=== PATIENT | female | born 1955 | race Caucasian/White ===

== ENCOUNTER 2023-03-25 15:12 | Inpatient (IN) | payer MEDICARE ==
[~2023-03-25] VITALS: Ht 160 cm; Wt 96.0 kg
[2023-04-22] MEDS ORDERED: Meclizine 25 MG TAB PO SCH (13:45)
[2023-04-22] MEDS ORDERED: NS 1,000 ML IV SCH (13:45)
[2023-04-23] VITALS (13 sets, daily range): BP systolic 107–158; BP diastolic 62–84; PULSE 74–81; TEMP 97.5–97.8
[2023-04-23] MEDS ORDERED: Acetaminophen 500 MG TAB PO SCH ×2 (06:09→13:00)
[2023-04-23] MEDS ORDERED: Gabapentin 100 MG CAP PO SCH (06:09)
[2023-04-23] MEDS ORDERED: Midazolam 2 MG/2 ML VIAL ONE (06:32)
[2023-04-23] MEDS ORDERED: fentaNYL 50 MCG/ML 2 ML VIAL ONE (06:32)
[2023-04-23] MEDS ORDERED: Ondansetron 4 MG/2 ML VIAL ONE (06:33)
[2023-04-23] MEDS ORDERED: Lidocaine PF 2% (20 MG/ML) 5 ML VIAL ONE (06:33)
[2023-04-23] MEDS ORDERED: Glycopyrrolate 0.2 MG/ML 1 ML VIAL ONE (06:33)
[2023-04-23] MEDS ORDERED: NS 10 ML IV ONE (06:33)
[2023-04-23] MEDS ORDERED: dexAMETHasone 10 MG/ML VIAL ONE (06:33)
[2023-04-23] MEDS ORDERED: Rocuronium 50 MG/5 ML Multi-Dose VIAL ONE (06:42)
[2023-04-23] MEDS ORDERED: Topical Skin Adhesive 1 EACH (1 ML) TOP ONE ×2 (06:43→07:57)
[2023-04-23] MEDS ORDERED: TOPROL XL100 MG PO (06:45)
[2023-04-23] MEDS ORDERED: OZEMPIC1 MG/0.71 SQ (06:45)
[2023-04-23] MEDS ORDERED: HCTZ 25MG TAB25 MG PO (06:46)
[2023-04-23] MEDS ORDERED: CATAPRES 0.1MG0.1 MG PO (06:46)
[2023-04-23] MEDS ORDERED: LOTREL 10 MG-401 CAP PO (06:46)
[2023-04-23] MEDS ORDERED: LIPITOR 40MG TA40 MG PO (06:47)
[2023-04-23] MEDS ORDERED: GLUCOPHAGE1000 MG PO (07:10)
[2023-04-23] MEDS ORDERED: INSULIN HUMA100 U/ML SQ (07:11)
[2023-04-23] MEDS ORDERED: ASPIRIN E.C. 8181 MG PO (07:12)
[2023-04-23] MEDS ORDERED: GLUCOTROL 5M5 MG/TAB PO (07:12)
[2023-04-23] MEDS ORDERED: TOUJEO MAX300 UNIT/1 SQ (07:13)
[2023-04-23] MEDS ORDERED: CALCIUM 600 PLU1 TAB PO (07:13)
[2023-04-23] MEDS ORDERED: NAPROSYN500 MG PO (07:14)
[2023-04-23] MEDS ORDERED: Ondansetron 4 MG/2 ML VIAL IV PRN ×2 (07:15→09:45)
[2023-04-23] MEDS ORDERED: LR 1,000 ML IV SCH (07:15)
[2023-04-23] MEDS ORDERED: Morphine 4 MG/ML VIAL IV PRN ×2 (07:15→09:45)
[2023-04-23] MEDS ORDERED: oxyCODONE 5 MG TAB PO PRN ×2 (07:15)
[2023-04-23] MEDS ORDERED: Naloxone 0.4 MG/ML VIAL IV PRN (07:15)
[2023-04-23] MEDS ORDERED: OZEMPIC2 MG/0.75 SQ (07:15)
[2023-04-23] MEDS ORDERED: ePHEDrine 50 MG/ML VIAL ONE (07:17)
[2023-04-23] MEDS ORDERED: Insulin Lispro (HumaLOG) SQ SCH (08:00)
[2023-04-23] MEDS ORDERED: Sennosides/Docusate 8.6-50 MG TAB PO SCH (09:00)
[2023-04-23] MEDS ORDERED: cloNIDine 0.1 MG TAB PO SCH (09:00)
[2023-04-23] MEDS ORDERED: HYDROmorphone 2 MG/1 ML VIAL IV PRN (09:45)
[2023-04-23] MEDS ORDERED: Meperidine 50 MG/ML 1 ML VIAL IV PRN (09:45)
--- NOTE | 2023-04-23 10:00 | NUR ---
Patient to room 348 from the PACU. Family at the bedside. Alert, but drowsy. VSS. IV CDI, by gravity. Post op VS monitored. ABD incisions CDI. Snowden intact. Nurse oriented the patient to location, call light and room. No further needs expressed. Call light within reach
[2023-04-23] MEDS ORDERED: hydroCHLOROthiazide 25 MG TAB PO SCH (10:30)
[2023-04-23] MEDS ORDERED: NS 1,000 ML IV ONE (11:31)
--- NOTE | 2023-04-23 12:04 | NUR ---
This student reported off to primary nurse SILVIA Ferguson.
[2023-04-23] MEDS ORDERED: PERCOCET 325 MG1 TA2 PO (12:40)
[2023-04-23] MEDS ORDERED: ceFAZolin 2 G in Water For Injection,Sterile 20 ML IV SCH (14:00)
--- NOTE | 2023-04-23 20:30 | NUR ---
PT AMBULATED IN HALLWAY WITH STAFF, STEADY GAIT. IN BED AT THIS TIME. ABD SOFT, WITH DRY ROBOTIC SITES X4. HAS SMALL MIDLINE DRY WELL. PASSING GAS. IVF TO LT HAND INFUSING WITHOUT PROBLEM. NO PAIN OR NAUSEA. SCDS ON. HO TO BSD WITH YELLOW URINE.
[2023-04-24] VITALS (7 sets, daily range): BP systolic 116–148; BP diastolic 72–83; PULSE 71–77; TEMP 97.8–98.3
--- NOTE | 2023-04-24 08:49 | NUR ---
SHIFT ASSESSMENT COMPLETE. VSS. PATIENT AWAKE IN BED AWAITING BREAKFAST. 5 INCISION SITE CDI. PATIENT HAS NO REQUEST OR COMPLAINTS AT THIS TIME. CALL LIGHT IN REACH
[2023-04-24] MEDS ORDERED: Atorvastatin 40 MG TAB PO SCH (09:00)
== END 2023-04-24 12:26 | disposition home or self-care (01) | DRG 658 ==
LOC: INPTSU 04-23 05:17 → SURG 04-23 07:30
PROVIDERS: ADMIT Urology
PROC: 8E0W4CZ Robotic Assisted Procedure of Trunk Region, Percutaneous Endoscopic Approach (ICD-10-PCS; 2023-04-23)
PROC: 07BD0ZX Excision of Aortic Lymphatic, Open Approach, Diagnostic (ICD-10-PCS; 2023-04-23)
PROC: 0TT14ZZ Resection of Left Kidney, Percutaneous Endoscopic Approach (ICD-10-PCS; principal; 2023-04-23 07:30)
DX: C64.2 Malignant neoplasm of left kidney, except renal pelvis (principal); E11.22 Type 2 diabetes mellitus with diabetic chronic kidney disease; N18.30 Chronic kidney disease, stage 3 unspecified; D64.9 Anemia, unspecified; I12.9 Hypertensive chronic kidney disease with stage 1 through stage 4 chronic kidney disease, or unspecified chronic kidney disease; E78.5 Hyperlipidemia, unspecified; Z23 Encounter for immunization; Z79.899 Other long term (current) drug therapy
CPT/HCPCS: A4314; A9284; J0690; J1100; J1815; J2250; J2405; J2704; J2765; J2795; J3010; J7030; J7120